=== PATIENT | female | born 1965 | race Caucasian/White ===

== ENCOUNTER 2016-04-27 14:43 | Emergency (ER) | payer OTHER ==
[~2016-04-27] VITALS: Ht 162.6 cm; Wt 44.1 kg
[~2016-04-27 14:43] MED LIST: OXYC1TAB24 PO
[2016-04-27 14:47] VITALS: BP 115/80; PULSE 99; RESP 16; O2SAT 99
== END 2016-04-27 14:54 | disposition left against medical advice (07) ==
LOC: SED 14:43
DX: N99.89 Other postprocedural complications and disorders of genitourinary system (principal); Z53.21 Procedure and treatment not carried out due to patient leaving prior to being seen by health care provider